=== PATIENT | male | born 1970 | race Caucasian/White ===

== ENCOUNTER 2018-05-30 19:00 | Observation (INO) | payer OTHER ==
[2018-05-30] MEDS ORDERED: ASPIRIN 81 MG PO STA (19:10)
[2018-05-30] MEDS ORDERED: SODIUM CHLORIDE 0.9% 500 ML IV STA (19:10)
--- NOTE | 2018-05-30 19:10 | ED ---
Chest Pain HPI - General Chief Complaint: Chest Pain Stated Complaint: chest pain Time Seen by Provider: 05/30/18 19:09 Source: patient, family Mode of arrival: ambulatory Limitations: no limitations - History of Present Illness Initial Comments: Lee is a 47-year-old male with past medical history of coronary artery disease with a stent placed approximately 2 years ago for a STEMI. Patient reports that he is followed with [facility]ology at the [facility], he was last seen approximately 6 months ago, he reports that he has been absolutely compliant with his home medications though he does not have a list of what they are. He states that he has been in his usual state of health. Today he was at [employer] when he began to feel a discomfort in his chest. He states that it was not a pain but just a feeling of being uncomfortable. He sat on a pain scale would only scale a 1. However he became very hot and sweaty. He excused himself from [employer] and went to the restroom where he washed his face with water. He again became hot and sweaty and washed his face again. He then began to feel somewhat better. He was uncertain of which medications to take so he took 4 nitro reports that I gave him a significant headache at which time he decided to come to the ER for evaluation. does have a history of hypertension, hyperlipidemia, coronary artery disease, obesity, he is a former cigarette smoker who does admit to smoking cigars fairly regularly recently. Patient denies any recent illness including fevers, chills, nausea, vomiting, change in bowel or bladder habits. - Related Data Home Medications Medication Instructions Recorded Confirmed Aspirin [Adult Low Dose Aspirin EC] 81 mg PO 05/30/18 Atorvastatin [Lipitor] 80 mg PO DAILY 05/30/18 05/30/18 Lisinopril [Zestril] 5 mg PO DAILY 05/30/18 05/30/18 Metoprolol Succinate [Toprol Xl] 50 mg PO BID 05/30/18 05/30/18 Ticagrelor [Brilinta] 90 mg PO BID 05/30/18 05/30/18 Allergies Allergy/AdvReac Type Severity Reaction Status Date / Time No Known Allergies Allergy Verified 05/30/18 19:08 Review of Systems ROS Statement: Those systems with pertinent positive or pertinent negative responses have been documented in the HPI. ROS Other: All systems not noted in ROS Statement are negative. Constitutional: Denies: fever Respiratory: Reports: dyspnea. Denies: cough, wheezes Cardiovascular: Reports: chest pain, palpitations. Denies: orthopnea, edema, syncope Endocrine: Denies: fatigue Gastrointestinal: Denies: abdominal pain, nausea, vomiting Genitourinary: Denies: urgency Musculoskeletal: Denies: back pain Neurological: Reports: headache (After taking nitro) Psychiatric: Denies: anxiety, depression EKG Findings - EKG Comments: EKG Findings:: EKG at 1942 - rate, 83, rhythm is sinus, normal intervals, DE is 174, QRS is 96, QTC is 434, there are no acute ST elevations or depressions. 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 Absent: respiratory distress Cardiovascular Exam: Present: regular rate, normal rhythm, normal heart sounds, other (Palpable peripheral pulses, present and equal in upper and lower extremities.) GI/Abdominal exam: Present: soft. Absent: distended, tenderness, guarding Rectal exam: Present: deferred Extremities exam: Present: normal inspection, full ROM, normal capillary refill. Absent: tenderness, pedal edema, joint swelling Back exam: Present: normal inspection Neurological exam: Present: alert, oriented X3 Psychiatric exam: Present: normal affect, normal mood Skin exam: Present: warm, dry Course Vital Signs 05/30/18 05/30/18 19:03 20:55 Temperature 98.2 F Pulse Rate 98 78 Respiratory 20 16 Rate Blood Pressure 141/85 137/77 O2 Sat by Pulse 98 98 Oximetry Chest Pain MDM - MDM The patient was seen and evaluated, history was obtained from the patient The patient with high risk cardiac history presents to the ED after an episode of chest discomfort, diaphoresis, lightheadedness which occurred while at [employer] The patient took 4 nitro prior to arrival Cardiac workup was ordered EKG with no acute ST elevations or depressions Chest x-ray unremarkable D-dimer and troponin were both negative, however considering the patient is very high risk I do feel he requires further evaluation. Patient care was discussed with Dr. Rojo who agrees the patient should be admitted to the hospital, recommends nitro and heparin drip and a consult to cardiology. Orders were placed. - Wells Criteria Clinical Symptoms of DVT: (0) No No Alternative Diagnosis: (0) No Immobilization of Surgery in Previous 4 Weeks: (0) No Previous DVT/PE: (0) No Hemoptysis: (0) No Malignancy: (0) No - ROMA Score Age > 65: (0) No 3 or more CAD Risk Factors: (1) Yes Aspirin use within the Past 7 Days: (1) Yes Disposition Clinical Impression: Chest pain, CAD (coronary artery disease), HTN (hypertension), HLD ( hyperlipidemia), Tobacco abuse, Obesity Disposition: ADMITTED IP TO THIS HOSP Referrals: None,Stated [Primary Care Provider] - 1-2 days Decision Time: 20:56
[2018-05-30 19:36] LABS: HCT 46.6 % (39.0-53.0); HGB 15.2 gm/dL (13.0-17.5); MCH 36.2 pg (25.0-35.0); MCHC 32.6 g/dL (31.0-37.0); Macrocytosis Marked; Mean Platelet Volume 6.8; Platelet Count 232 k/uL (150-450); WBC 5.2 k/uL (3.8-10.6)
[2018-05-30 19:50] LABS: Partial Thromboplastin Time 25.7 sec (22.0-30.0); Prothrombin Time 9.7 sec (9.0-12.0)
[2018-05-30 19:53] LABS: ALT 52 U/L (21-72); AST 38 U/L (17-59); Albumin 3.9 g/dL (3.5-5.0); Alkaline Phosphatase 80 U/L (38-126); Anion Gap 7 mmol/L; Blood Urea Nitrogen 17 mg/dL (9-20); Calcium 9.1 mg/dL (8.4-10.2); Carbon Dioxide 28 mmol/L (22-30); Chloride 104 mmol/L (98-107); Glucose 103 mg/dL (74-99); Magnesium 1.8 mg/dL (1.6-2.3); Potassium 4.1 mmol/L (3.5-5.1); Sodium 139 mmol/L (137-145); Total Bilirubin 0.5 mg/dL (0.2-1.3); Total Protein 6.4 g/dL (6.3-8.2)
[2018-05-30 19:58] LABS: Creatine Kinase 241 U/L (55-170)
--- NOTE | 2018-05-30 20:00 | XR ---
EXAMINATION TYPE: XR chest 2V DATE OF EXAM: 05/30/2018 COMPARISON: NONE, no prior study available in the PACS system. HISTORY: Chest pain and shortness of breath TECHNIQUE: Frontal and lateral views of the chest are obtained. FINDINGS: Multiple monitor leads are superimposing the patient chest. No pneumothorax or pleural effu sions. The pleural and diaphragmatic surfaces are well defined. No evidence of bonilla pulmonary edema. The aorta is moderately tortuous. IMPRESSION: Persistent tortuous thoracic aorta. No evidence of pneumothorax, significant pleural effusions or fra nk pulmonary edema.
[2018-05-30 20:11] LABS: Creatine Kinase MB 1.7 ng/mL (0.0-2.4); Troponin I <0.012 ng/mL (0.000-0.034)
[2018-05-30 20:20] LABS: Band Neutrophils % 3 %; Eosinophils # (M) 0.31 k/uL (0-0.7); Lymphocytes # (M) 2.55 k/uL (1.0-4.8); Neutrophils % (M) 40 %; Nucleated Red Blood Cells 0 /100 WBC (0-0); Total Cells Counted 100
[2018-05-30] MEDS ORDERED: NITROGLYCERIN SL TABS 0.4 MG TAB SUBLINGUAL PRN (20:56)
[2018-05-30] MEDS ORDERED: HEPARIN SODIUM,PORCINE 5,000 UNIT/ML 1 ML VIAL IV PRN (20:56)
[2018-05-30] MEDS ORDERED: HEPARIN SODIUM,PORCINE 5,000 UNIT/ML 1 ML VIAL IV ONE (20:56)
[2018-05-30] MEDS ORDERED: HEPARIN SOD,PORK IN 0.45% NACL 25,000 UNIT in 0.45% NACL 1 500ML.BAG IV SCH (21:00)
[2018-05-30] MEDS ORDERED: NITROGLYCERIN-D5W PMX 50 MG in DEXTROSE/WATER 1 250ML.BAG IV ONE (21:10)
[2018-05-30 22:50] VITALS: BMI 43.9
[2018-05-30] MEDS ORDERED: ATORVASTATIN 80 MG TAB PO SCH (23:15)
[2018-05-31] MEDS: NITROGLYCERIN OINT 1 INCH/GM PACKET TOPICAL SCH ×2 (00:27→06:14)
[2018-05-31] MEDS: TICAGRELOR 90 MG TAB PO SCH ×2 (00:47→08:45)
[2018-05-31] MEDS: METOPROLOL SUCCINATE (ER) 50 MG TAB.ER.24H PO SCH ×2 (00:47→08:45)
[2018-05-31 03:23] LABS: Cholesterol 153 mg/dL (<200); HDL Cholesterol 48 mg/dL (40-60); LDL Cholesterol,Calculated 64 mg/dL (0-99); Triglycerides 203 mg/dL (<150)
[2018-05-31 03:24] LABS: Mean Platelet Volume 6.7; Platelet Count 220 k/uL (150-450)
[2018-05-31 03:26] LABS: Creatine Kinase 197 U/L (55-170)
[2018-05-31 03:39] LABS: Creatine Kinase MB 1.7 ng/mL (0.0-2.4); Troponin I <0.012 ng/mL (0.000-0.034)
[2018-05-31 07:03] VITALS: RESP 18
[2018-05-31 08:02] LABS: Creatine Kinase 197 U/L (55-170)
[2018-05-31 08:14] LABS: Creatine Kinase MB 1.6 ng/mL (0.0-2.4); Troponin I <0.012 ng/mL (0.000-0.034)
[2018-05-31] MEDS ORDERED: LISINOPRIL 5 MG TAB PO SCH (09:00)
[2018-05-31] MEDS ORDERED: ASPIRIN 81 MG PO SCH (09:00)
[2018-05-31] MEDS ORDERED: ASPIRIN 325 MG TAB PO SCH (09:00)
[2018-05-31 09:21] VITALS: BP 125/78; PULSE 66; TEMP 98.2
--- NOTE | 2018-05-31 09:49 | CONS ---
CONSULTATION Mr. Garcia is a 47-year-old male who presented with symptoms of feeling dizzy and sweaty. He has a known history of coronary artery disease status post stenting in the setting of myocardial infarction in january 2016 done at the [facility] in [place]. He follows with the [facility] on a regular basis and yesterday while at [employer], he felt sweaty, did not feel well, did not have any significant discomfort, just felt uncomfortable. Washed off with some cold water and took some nitroglycerin and after he left, he was still not feeling too well. He came into the emergency room subsequently admitted. He denies any clear symptoms of chest discomfort. He denies any dizziness or palpitation. He has no peripheral edema. No PND, orthopnea, or syncope. He has no history of CHF or malignant arrhythmia. He is not very active physically. His coronary risk factors remarkable for smoking cigars at times. He has a history of hyperlipidemia. He is nondiabetic. I do not have any full detail of his procedure or his left ventricular systolic function. MEDICATION: At home include aspirin 81 mg daily, Brilinta 80 mg twice a day, Lipitor 80 mg daily, metoprolol succinate 50 mg twice a day and Zestril 5 mg daily. REVIEW OF SYSTEMS: RESPIRATORY SYSTEM: Has no recent wheezing. No cough. No history of obstructive lung disease. GI system: No recent GI bleeding. No peptic ulcer disease. system: No dysuria or hematuria. Nervous system: No history of stroke or seizure. PHYSICAL EXAMINATION: 47-year-old male, alert, oriented, in no apparent distress. Blood pressure 137/84 with a heart rate in 70s. HEAD: Normocephalic. Eyes sclerae anicteric. Neck good carotid upstroke. No bruit. No jugular venous distention. Lungs clear to auscultation. HEART: Regular rate and rhythm S1, S2. No S3. No S4. No murmur or rub. ABDOMEN: Soft, nontender. Positive bowel sounds. No organomegaly. EXTREMITIES: No edema. Intact distal pulses. LAB DATA: Lab data revealed troponin less than 0.012. BUN and creatinine 17 and 1.0. Hemoglobin of 15.2. Potassium 4.1. Cholesterol 153, LDL of 64. EKG revealed a sinus mechanism, normal axis, no acute changes. Chest x-ray shows no evidence of effusion or infiltrate. IMPRESSION: 1. Vague symptoms of right-sided discomfort and not feeling well, could be related to hypotensive episode. No clear evidence to suggest acute coronary syndrome. 2. History of coronary artery disease status post percutaneous revascularization. 3. History of smoking cigars. 4. History of hyperlipidemia. RECOMMENDATIONS: I will stop the heparin. Increase his level activity. I would recommend to proceed with myocardial perfusion imaging and echocardiogram to further assess his status and guide his treatment. Depending on the results of the testing, further recommendations will be made. Thank you for this consult. We will follow with you. MMODL / IJN: [id number] /
--- NOTE | 2018-06-02 17:14 | HP ---
HISTORY AND PHYSICAL HISTORY AND PHYSICAL/DISCHARGE SUMMARY: Combination history and physical and discharge summary CHIEF COMPLAINT: Chest pain. HISTORY OF PRESENT ILLNESS: This 47-year-old gentleman was admitted with chest pain. The patient left the hospital AGAINST MEDICAL ADVICE before being seen. Please refer to the multiple notes and ER notes for further information. Prognosis extremely guarded. DIAGNOSES: Chest pain, etiology undetermined. MMODL / IJN: [id number] /
== END 2018-05-31 11:58 | disposition left against medical advice (07) ==
LOC: EC 19:00 → 3OBS 20:59
PROVIDERS: ADMIT Hospitalist; ATTEND Hospitalist
DX: R07.89 Other chest pain (principal); R61 Generalized hyperhidrosis; R42 Dizziness and giddiness; I25.10 Atherosclerotic heart disease of native coronary artery without angina pectoris; E78.5 Hyperlipidemia, unspecified; I10 Essential (primary) hypertension; E66.9 Obesity, unspecified; Z68.41 Body mass index [BMI] 40.0-44.9, adult; D46.9 Myelodysplastic syndrome, unspecified; G44.40 Drug-induced headache, not elsewhere classified, not intractable; T46.3X5A Adverse effect of coronary vasodilators, initial encounter; F17.290 Nicotine dependence, other tobacco product, uncomplicated; Z79.02 Long term (current) use of antithrombotics/antiplatelets; Z79.82 Long term (current) use of aspirin; Z79.899 Other long term (current) drug therapy; I25.2 Old myocardial infarction; Z95.5 Presence of coronary angioplasty implant and graft
CPT/HCPCS: 99285 ×2; 96365 ×2; 96376 ×2; 96361 ×2; 96366 ×2; 36415; 93005; 83880; 80061; 80053; 82550 ×2; 82553 ×2; 83735; 84484 ×2; 85025; 85049; 85610; 85730 ×2; 71046; G0378 ×2; J1644 ×2

== ENCOUNTER 2019-04-30 13:38 | Emergency (ER) | payer OTHER ==
[2019-04-30] MEDS ORDERED: SODIUM CHLORIDE 0.9% 500 ML 500 ML IV STA (14:18)
[2019-04-30] MEDS ORDERED: LORazepam 2 MG/ML INJ IV STA (14:22)
--- NOTE | 2019-04-30 14:28 | ED ---
General Adult HPI - General Chief complaint: Chest Pain Stated complaint: chest pain Time Seen by Provider: 04/30/19 13:40 Source: patient, RN notes reviewed Mode of arrival: ambulatory Limitations: no limitations - History of Present Illness Initial comments: This a 48-year-old male who presents with a past medical history significant for coronary artery stent. Patient denies smoking. Patient states he does have high blood pressure medications since his heart attack. Patient states since heart attack he's been very stressed. Patient states that he has been under quite a bit of stress this last 2 weeks. Patient states today at a restaurant while he was eating an appetizer he started feeling warm all over and that really worried him so he decided to get up and come to the hospital. Patient states by the time he left the restaurant the warmth has gone away. Patient states he never had chest pain denies any shortness of breath or difficulty breathing. Patient denies any palpitations. Patient denies lightheadedness dizziness or near syncopal episode. Patient denies any abdominal pain patient denies nausea vomiting diarrhea per patient denies any leg swelling or calf tenderness. Patient states he thinks he might of been having a little bit of a panic attack. - Related Data Home Medications Medication Instructions Recorded Confirmed Aspirin [Adult Low Dose Aspirin EC] 81 mg PO DAILY 05/30/18 04/30/19 Atorvastatin [Lipitor] 80 mg PO DAILY 05/30/18 04/30/19 Lisinopril [Zestril] 5 mg PO DAILY 05/30/18 04/30/19 Metoprolol Succinate [Toprol Xl] 50 mg PO DAILY 05/30/18 04/30/19 Clopidogrel [Plavix] 75 mg PO DAILY 04/30/19 04/30/19 Montelukast [Singulair] 10 mg PO DAILY 04/30/19 04/30/19 Allergies Allergy/AdvReac Type Severity Reaction Status Date / Time No Known Allergies Allergy Verified 04/30/19 14:29 Review of Systems ROS Statement: Those systems with pertinent positive or pertinent negative responses have been documented in the HPI. ROS Other: All systems not noted in ROS Statement are negative. 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 Patient is nontoxic and well- hydrated and is in no acute distress. ENT: Neck is soft and supple. No significant lymphadenopathy is noted. Oropharynx is clear. Moist mucous membranes. Neck has full range of motion without eliciting any pain. EYES: The sclera were anicteric and conjunctiva were pink and moist. Extraocular movements were intact and pupils were equal round and reactive to light. Eyelids were unremarkable. PULMONARY: Unlabored respirations. Good breath sounds bilaterally. No audible rales rhonchi or wheezing was noted. CARDIOVASCULAR: There is a regular rate and rhythm without any murmurs gallops or rubs. ABDOMEN: Soft and nontender with normal bowel sounds. No palpable organomegaly was noted. There is no palpable pulsatile mass. SKIN: Skin is clear with no lesions or rashes and otherwise unremarkable. NEUROLOGIC: Patient is alert and oriented x3. Cranial nerves II through XII are grossly intact. Motor and sensory are also intact. Normal speech, volume and content. Symmetrical smile. MUSCULOSKELETAL: Normal extremities with adequate strength and full range of motion. No lower extremity swelling or edema. No calf tenderness. LYMPHATICS: No significant lymphadenopathy is noted PSYCHIATRIC: Mild anxiety Limitations: no limitations Course Vital Signs 04/30/19 04/30/19 04/30/19 13:40 14:43 15:28 Temperature 98 F 98.3 F Pulse Rate 111 H 87 Respiratory 22 16 18 Rate Blood Pressure 163/95 155/86 O2 Sat by Pulse 97 97 Oximetry Medical Decision Making - Medical Decision Making EKG shows sinus tachycardia at 102 beats per minute CA interval is 176 QRS is 94 QT interval 348 QTC is 453 per patient's EKG shows no ST segment elevation or depression or T wave abnormalities are noted. Patient states any symptomatic since he was in the emergency department. Patient states he thinks it was just his anxiety. Patient denies any symptoms currently. Patient requested go home. - Lab Data Result diagrams: 04/30/19 14:40 04/30/19 14:40 Lab Results 04/30/19 04/30/19 04/30/19 Range/Units 14:40 14:40 14:40 WBC 4.7 (3.8-10.6) k/uL RBC 4.52 (4.30-5.90) m/uL Hgb 15.9 (13.0-17.5) gm/dL Hct 48.4 (39.0-53.0) % MCV 107.1 H (80.0-100.0) fL MCH 35.1 H (25.0-35.0) pg MCHC 32.7 (31.0-37.0) g/dL RDW 14.4 (11.5-15.5) % Plt Count 269 (150-450) k/uL Neutrophils % 63 % Lymphocytes % 19 % Monocytes % 11 % Eosinophils % 3 % Basophils % 1 % Neutrophils # 3.0 (1.3-7.7) k/uL Lymphocytes # 0.9 L (1.0-4.8) k/uL Monocytes # 0.5 (0-1.0) k/uL Eosinophils # 0.2 (0-0.7) k/uL Basophils # 0.0 (0-0.2) k/uL Macrocytosis Moderate PT 9.6 (9.0-12.0) sec INR 0.9 (<1.2) APTT 27.6 (22.0-30.0) sec Sodium 139 (137-145) mmol/L Potassium 5.3 H (3.5-5.1) mmol/L Chloride 107 (98-107) mmol/L Carbon Dioxide 25 (22-30) mmol/L Anion Gap 7 mmol/L BUN 15 (9-20) mg/dL Creatinine 0.84 (0.66-1.25) mg/dL Est GFR (CKD-EPI)AfAm >90 (>60 ml/min/1.73 sqM) Est GFR (CKD-EPI)NonAf >90 (>60 ml/min/1.73 sqM) Glucose 110 H (74-99) mg/dL Calcium 9.4 (8.4-10.2) mg/dL Magnesium 2.0 (1.6-2.3) mg/dL Total Bilirubin 1.1 (0.2-1.3) mg/dL AST 53 (17-59) U/L ALT 32 (21-72) U/L Alkaline Phosphatase 83 (38-126) U/L Troponin I (0.000-0.034) ng/mL Total Protein 7.3 (6.3-8.2) g/dL Albumin 4.3 (3.5-5.0) g/dL 04/30/19 Range/Units 14:40 WBC (3.8-10.6) k/uL RBC (4.30-5.90) m/uL Hgb (13.0-17.5) gm/dL Hct (39.0-53.0) % MCV (80.0-100.0) fL MCH (25.0-35.0) pg MCHC (31.0-37.0) g/dL RDW (11.5-15.5) % Plt Count (150-450) k/uL Neutrophils % % Lymphocytes % % Monocytes % % Eosinophils % % Basophils % % Neutrophils # (1.3-7.7) k/uL Lymphocytes # (1.0-4.8) k/uL Monocytes # (0-1.0) k/uL Eosinophils # (0-0.7) k/uL Basophils # (0-0.2) k/uL Macrocytosis PT (9.0-12.0) sec INR (<1.2) APTT (22.0-30.0) sec Sodium (137-145) mmol/L Potassium (3.5-5.1) mmol/L Chloride (98-107) mmol/L Carbon Dioxide (22-30) mmol/L Anion Gap mmol/L BUN (9-20) mg/dL Creatinine (0.66-1.25) mg/dL Est GFR (CKD-EPI)AfAm (>60 ml/min/1.73 sqM) Est GFR (CKD-EPI)NonAf (>60 ml/min/1.73 sqM) Glucose (74-99) mg/dL Calcium (8.4-10.2) mg/dL Magnesium (1.6-2.3) mg/dL Total Bilirubin (0.2-1.3) mg/dL AST (17-59) U/L ALT (21-72) U/L Alkaline Phosphatase (38-126) U/L Troponin I <0.012 (0.000-0.034) ng/mL Total Protein (6.3-8.2) g/dL Albumin (3.5-5.0) g/dL Disposition Clinical Impression: Anxiety Disposition: HOME SELF-CARE Condition: Good Instructions (If sedation given, give patient instructions): Anxiety (ED) Is patient prescribed a controlled substance at d/c from ED?: No Referrals: Nonstaff,Physician [Primary Care Provider] - 1-2 days Time of Disposition: 16:23
[2019-04-30 14:55] LABS: Basophils % (A) 1 %; Eosinophils # (A) 0.2 k/uL (0-0.7); Eosinophils % (A) 3 %; HCT 48.4 % (39.0-53.0); HGB 15.9 gm/dL (13.0-17.5); Lymphocytes # (A) 0.9 k/uL (1.0-4.8); Lymphocytes % (A) 19 %; MCH 35.1 pg (25.0-35.0); MCHC 32.7 g/dL (31.0-37.0); MCV 107.1 fL (80.0-100.0); Macrocytosis Moderate; Monocytes # (A) 0.5 k/uL (0-1.0); Monocytes % (A) 11 %; Neutrophils % (A) 63 %; Platelet Count 269 k/uL (150-450); RBC 4.52 m/uL (4.30-5.90); RDW 14.4 % (11.5-15.5); WBC 4.7 k/uL (3.8-10.6)
--- NOTE | 2019-04-30 15:00 | XR ---
EXAMINATION TYPE: XR chest 2V DATE OF EXAM: 04/30/2019 COMPARISON: 05/30/2018 HISTORY: Chest pain TECHNIQUE: Frontal and lateral views of the chest are obtained. FINDINGS: There is no focal air space opacity, pleural effusion, or pneumothorax seen. The cardiac silhouette size is within normal limits. The osseous structures are intact. Minimal multilevel dege nerative changes of the thoracic spine is noted. IMPRESSION: No acute cardiopulmonary process.
[2019-04-30 15:11] LABS: ALT 32 U/L (21-72); AST 53 U/L (17-59); African American GFR (CKD) >90 (>60 ml/min/1.73 sqM); Albumin 4.3 g/dL (3.5-5.0); Alkaline Phosphatase 83 U/L (38-126); Anion Gap 7 mmol/L; Blood Urea Nitrogen 15 mg/dL (9-20); Calcium 9.4 mg/dL (8.4-10.2); Carbon Dioxide 25 mmol/L (22-30); Chloride 107 mmol/L (98-107); Glucose 110 mg/dL (74-99); Sodium 139 mmol/L (137-145); Total Bilirubin 1.1 mg/dL (0.2-1.3); Total Protein 7.3 g/dL (6.3-8.2)
[2019-04-30 15:15] LABS: Potassium 5.3 mmol/L (3.5-5.1)
[2019-04-30 15:25] LABS: INR 0.9 (<1.2); Partial Thromboplastin Time 27.6 sec (22.0-30.0); Prothrombin Time 9.6 sec (9.0-12.0)
[2019-04-30 15:29] VITALS: BP 155/86; PULSE 87; RESP 18; TEMP 98.3
== END 2019-04-30 16:30 | disposition home or self-care (01) ==
LOC: EC 13:38
DX: F41.9 Anxiety disorder, unspecified (principal); R00.0 Tachycardia, unspecified; I25.10 Atherosclerotic heart disease of native coronary artery without angina pectoris; E78.5 Hyperlipidemia, unspecified; I10 Essential (primary) hypertension; F17.200 Nicotine dependence, unspecified, uncomplicated; I25.2 Old myocardial infarction; Z79.82 Long term (current) use of aspirin; Z79.02 Long term (current) use of antithrombotics/antiplatelets; Z79.899 Other long term (current) drug therapy; Z95.5 Presence of coronary angioplasty implant and graft
CPT/HCPCS: 36415; 93005; 80053; 83735; 84484; 85025; 85610; 85730; 71046; 99285; 96374; 96361; J2060

== ENCOUNTER 2019-08-05 12:55 | Inpatient (IN) | payer OTHER ==
[2019-08-05] MEDS ORDERED: SODIUM CHLORIDE 0.9% 1,000 ML IV STA ×2 (13:34→13:42)
[2019-08-05] MEDS ORDERED: IPRATROPIUM-ALBUTEROL 3 ML NEB INHALATION STA ×3 (13:34→16:05)
[2019-08-05] MEDS ORDERED: methylPREDNISolone SOD SUCCI 125 MG/2 ML VIAL IV STA (13:34)
[2019-08-05] MEDS ORDERED: SODIUM CHLORIDE 0.9% 500 ML 500 ML IV STA (13:42)
--- NOTE | 2019-08-05 13:42 | ED ---
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 MD Complaint: shortness of breath, cough - Related Data Home Medications Medication Instructions Recorded Confirmed Aspirin [Adult Low Dose Aspirin EC] 81 mg PO DAILY 05/30/18 08/05/19 Atorvastatin [Lipitor] 80 mg PO HS 05/30/18 08/05/19 Lisinopril [Zestril] 5 mg PO DAILY 05/30/18 08/05/19 Metoprolol Succinate [Toprol Xl] 50 mg PO DAILY 05/30/18 08/05/19 Montelukast [Singulair] 10 mg PO DAILY 04/30/19 08/05/19 Allergies Allergy/AdvReac Type Severity Reaction Status Date / Time No Known Allergies Allergy Verified 08/05/19 13:30 Review of Systems ROS Statement: Those systems with pertinent positive or pertinent negative responses have been documented in the HPI. ROS Other: All systems not noted in ROS Statement are negative. Past Medical History Past Medical History: Coronary Artery Disease (CAD), Hyperlipidemia, Hypertension Additional Past Medical History / Comment(s): MDS History of Any Multi-Drug Resistant Organisms: None Reported Past Surgical History: Back Surgery, Heart Catheterization With Stent Additional Past Surgical History / Comment(s): Pins rt ankle Past Anesthesia/Blood Transfusion Reactions: No Reported Reaction Date of Last Stent Placement:: 2013 Past Psychological History: No Psychological Hx Reported Smoking Status: Light tobacco smoker Past Alcohol Use History: Occasional Past Drug Use History: None Reported General Exam - General Exam Comments Initial Comments: This a well-developed well-nourished awake alert oriented times 3 male Limitations: no limitations General appearance: alert, anxious, in distress Head exam: Present: atraumatic, normocephalic, normal inspection Eye exam: Present: normal appearance, PERRL, EOMI. Absent: scleral icterus, conjunctival injection, periorbital swelling ENT exam: Present: other (Boggy nasal mucosa) Neck exam: Present: normal inspection, full ROM, other (No stridor JVD or bruits). Absent: tenderness, meningismus, lymphadenopathy Respiratory exam: Present: wheezes, decreased breath sounds. Absent: respiratory distress, rales, rhonchi, stridor Cardiovascular Exam: Present: normal rhythm, tachycardia, normal heart sounds. Absent: systolic murmur, diastolic murmur, rubs, gallop, clicks GI/Abdominal exam: Present: soft, normal bowel sounds. Absent: distended, tenderness, guarding, rebound, rigid Extremities exam: Present: normal inspection, full ROM, normal capillary refill. Absent: tenderness, pedal edema, joint swelling, calf tenderness Back exam: Present: normal inspection Neurological exam: Present: alert, oriented X3, CN II-XII intact Psychiatric exam: Present: normal affect, normal mood Skin exam: Present: warm, dry, intact, normal color. Absent: rash Course Vital Signs 08/05/19 08/05/19 08/05/19 13:00 14:05 14:32 Temperature 102.7 F H Pulse Rate 149 H 151 H Respiratory 26 H 24 25 H Rate Blood Pressure 148/82 146/98 O2 Sat by Pulse 93 L 96 Oximetry 08/05/19 08/05/19 08/05/19 14:40 14:44 14:51 Temperature Pulse Rate 149 H 138 H 148 H Respiratory 35 H Rate Blood Pressure 146/98 O2 Sat by Pulse 92 L Oximetry 08/05/19 08/05/19 08/05/19 15:00 15:18 15:24 Temperature Pulse Rate 144 H 148 H 146 H Respiratory 44 H Rate Blood Pressure 146/98 O2 Sat by Pulse 92 L Oximetry - Reevaluation(s) Reevaluation #1: 08/05/19 16:03 Reevaluation patient reveals minimal improvement he still is dyspneic so demo nstrates diminished breath sounds bilaterally with right upper lobe crepitus. He also still demonstrated tachycardia. He does take blood pressure medication which he states he has not taken today. Patient will be admitted for inpatient treatment of pneumonia and COPD exacerbation Medical Decision Making - Medical Decision Making I did discuss the findings with the patient he continues to desaturate and straight exertional dyspnea tachycardia. He responded well with the medication given thus far. He will be admitted I did discuss the case with Elke who is covering Dr. Henry. - Lab Data Result diagrams: 08/05/19 14:16 08/05/19 14:16 Lab Results 08/05/19 08/05/19 08/05/19 Range/Units 13:51 14:00 14:16 WBC 14.2 H (3.8-10.6) k/uL RBC 4.31 (4.30-5.90) m/uL Hgb 15.7 (13.0-17.5) gm/dL Hct 45.5 (39.0-53.0) % MCV 105.6 H (80.0-100.0) fL MCH 36.3 H (25.0-35.0) pg MCHC 34.4 (31.0-37.0) g/dL RDW 14.6 (11.5-15.5) % Plt Count 309 (150-450) k/uL Neutrophils % 87 % Lymphocytes % 3 % Monocytes % 6 % Eosinophils % 1 % Basophils % 1 % Neutrophils # 12.3 H (1.3-7.7) k/uL Lymphocytes # 0.4 L (1.0-4.8) k/uL Monocytes # 0.8 (0-1.0) k/uL Eosinophils # 0.1 (0-0.7) k/uL Basophils # 0.1 (0-0.2) k/uL Macrocytosis Moderate PT (9.0-12.0) sec INR (<1.2) APTT (22.0-30.0) sec Sodium (137-145) mmol/L Potassium (3.5-5.1) mmol/L Chloride (98-107) mmol/L Carbon Dioxide (22-30) mmol/L Anion Gap mmol/L BUN (9-20) mg/dL Creatinine (0.66-1.25) mg/dL Est GFR (CKD-EPI)AfAm (>60 ml/min/1.73 sqM) Est GFR (CKD-EPI)NonAf (>60 ml/min/1.73 sqM) Glucose (74-99) mg/dL Plasma Lactic Acid Gurvinder (0.7-2.0) mmol/L Calcium (8.4-10.2) mg/dL Magnesium (1.6-2.3) mg/dL Total Bilirubin (0.2-1.3) mg/dL AST (17-59) U/L ALT (21-72) U/L Alkaline Phosphatase (38-126) U/L Creatine Kinase (55-170) U/L Troponin I (0.000-0.034) ng/mL NT-Pro-B Natriuret Pep pg/mL Total Protein (6.3-8.2) g/dL Albumin (3.5-5.0) g/dL Urine Color Dark Brown Urine Appearance Cloudy (Clear) Urine pH 6.0 (5.0-8.0) Ur Specific [place] 1.047 H (1.001-1.035) Urine Protein 3+ H (Negative) Urine Glucose (UA) Trace H (Negative) Urine Ketones Trace H (Negative) Urine Blood Moderate H (Negative) Urine Nitrite Negative (Negative) Urine Bilirubin 1+ H (Negative) Urine Urobilinogen 4.0 (<2.0) mg/dL Ur Leukocyte Esterase Negative (Negative) Urine RBC 42 H (0-5) /hpf Urine WBC 9 H (0-5) /hpf Urine Bacteria Occasional H (None) /hpf Urine Mucus Many H (None) /hpf Influenza Type A RNA Not Detected (Not Detectd) Influenza Type B (PCR) Not Detected (Not Detectd) 08/05/19 08/05/19 08/05/19 Range/Units 14:16 14:16 14:16 WBC (3.8-10.6) k/uL RBC (4.30-5.90) m/uL Hgb (13.0-17.5) gm/dL Hct (39.0-53.0) % MCV (80.0-100.0) fL MCH (25.0-35.0) pg MCHC (31.0-37.0) g/dL RDW (11.5-15.5) % Plt Count (150-450) k/uL Neutrophils % % Lymphocytes % % Monocytes % % Eosinophils % % Basophils % % Neutrophils # (1.3-7.7) k/uL Lymphocytes # (1.0-4.8) k/uL Monocytes # (0-1.0) k/uL Eosinophils # (0-0.7) k/uL Basophils # (0-0.2) k/uL Macrocytosis PT 9.8 (9.0-12.0) sec INR 0.9 (<1.2) APTT 30.7 H (22.0-30.0) sec Sodium 140 (137-145) mmol/L Potassium 4.5 (3.5-5.1) mmol/L Chloride 106 (98-107) mmol/L Carbon Dioxide 22 (22-30) mmol/L Anion Gap 12 mmol/L BUN 16 (9-20) mg/dL Creatinine 1.21 (0.66-1.25) mg/dL Est GFR (CKD-EPI)AfAm 80 (>60 ml/min/1.73 sqM) Est GFR (CKD-EPI)NonAf 69 (>60 ml/min/1.73 sqM) Glucose 125 H (74-99) mg/dL Plasma Lactic Acid Gurvinder (0.7-2.0) mmol/L Calcium 9.1 (8.4-10.2) mg/dL Magnesium 1.9 (1.6-2.3) mg/dL Total Bilirubin 1.0 (0.2-1.3) mg/dL AST 110 H (17-59) U/L ALT 139 H (21-72) U/L Alkaline Phosphatase 188 H (38-126) U/L Creatine Kinase 164 (55-170) U/L Troponin I (0.000-0.034) ng/mL NT-Pro-B Natriuret Pep 73 pg/mL Total Protein 7.3 (6.3-8.2) g/dL Albumin 3.8 (3.5-5.0) g/dL Urine Color Urine Appearance (Clear) Urine pH (5.0-8.0) Ur Specific [place] (1.001-1.035) Urine Protein (Negative) Urine Glucose (UA) (Negative) Urine Ketones (Negative) Urine Blood (Negative) Urine Nitrite (Negative) Urine Bilirubin (Negative) Urine Urobilinogen (<2.0) mg/dL Ur Leukocyte Esterase (Negative) Urine RBC (0-5) /hpf Urine WBC (0-5) /hpf Urine Bacteria (None) /hpf Urine Mucus (None) /hpf Influenza Type A RNA (Not Detectd) Influenza Type B (PCR) (Not Detectd) 08/05/19 08/05/19 Range/Units 14:16 14:16 WBC (3.8-10.6) k/uL RBC (4.30-5.90) m/uL Hgb (13.0-17.5) gm/dL Hct (39.0-53.0) % MCV (80.0-100.0) fL MCH (25.0-35.0) pg MCHC (31.0-37.0) g/dL RDW (11.5-15.5) % Plt Count (150-450) k/uL Neutrophils % % Lymphocytes % % Monocytes % % Eosinophils % % Basophils % % Neutrophils # (1.3-7.7) k/uL Lymphocytes # (1.0-4.8) k/uL Monocytes # (0-1.0) k/uL Eosinophils # (0-0.7) k/uL Basophils # (0-0.2) k/uL Macrocytosis PT (9.0-12.0) sec INR (<1.2) APTT (22.0-30.0) sec Sodium (137-145) mmol/L Potassium (3.5-5.1) mmol/L Chloride (98-107) mmol/L Carbon Dioxide (22-30) mmol/L Anion Gap mmol/L BUN (9-20) mg/dL Creatinine (0.66-1.25) mg/dL Est GFR (CKD-EPI)AfAm (>60 ml/min/1.73 sqM) Est GFR (CKD-EPI)NonAf (>60 ml/min/1.73 sqM) Glucose (74-99) mg/dL Plasma Lactic Acid Gurvinder 1.8 (0.7-2.0) mmol/L Calcium (8.4-10.2) mg/dL Magnesium (1.6-2.3) mg/dL Total Bilirubin (0.2-1.3) mg/dL AST (17-59) U/L ALT (21-72) U/L Alkaline Phosphatase (38-126) U/L Creatine Kinase (55-170) U/L Troponin I <0.012 (0.000-0.034) ng/mL NT-Pro-B Natriuret Pep pg/mL Total Protein (6.3-8.2) g/dL Albumin (3.5-5.0) g/dL Urine Color Urine Appearance (Clear) Urine pH (5.0-8.0) Ur Specific [place] (1.001-1.035) Urine Protein (Negative) Urine Glucose (UA) (Negative) Urine Ketones (Negative) Urine Blood (Negative) Urine Nitrite (Negative) Urine Bilirubin (Negative) Urine Urobilinogen (<2.0) mg/dL Ur Leukocyte Esterase (Negative) Urine RBC (0-5) /hpf Urine WBC (0-5) /hpf Urine Bacteria (None) /hpf Urine Mucus (None) /hpf Influenza Type A RNA (Not Detectd) Influenza Type B (PCR) (Not Detectd) - Radiology Data Radiology results: report reviewed (Multifocal pneumonia especially right upper lobe), image reviewed Critical Care Time Critical Care Time: Yes Critical Care Time: 31 minutes of critical care time which includes initial presentation with history physical labs x-rays multiple reevaluation patient responsive therapy discuss with the patient regarding the findings discussed with the admitting service admission orders and documentation of the above Disposition Clinical Impression: Right upper lobe pneumonia, Acute exacerbation of chronic obstructive pulmonary disease, Acute respiratory distress syndrome in adult, Tachycardia, Febrile illness, acute Disposition: ADMITTED IP TO THIS [facility] Condition: Fair Referrals: Nonstaff,Physician [Primary Care Provider] - 1-2 days
--- NOTE | 2019-08-05 13:57 | XR ---
EXAMINATION TYPE: XR chest 2V DATE OF EXAM: 08/05/2019 COMPARISON: 04/30/2019 HISTORY: Cough and body aches TECHNIQUE: Frontal and lateral views of the chest are obtained. FINDINGS: New opacities are seen in the right upper lobe including the lateral aspect and paratrache al region. Remainder the lungs are clear. Flattening of the diaphragms on the lateral view suggests u nderlying COPD. Cardiomediastinal silhouette is within normal limits but shifted to the right seconda ry to patient positioning. IMPRESSION: Findings most compatible with multifocal pneumonia. Follow-up to resolution is recommend ed.
[2019-08-05 14:03] LABS: Appearance,Urine Cloudy (Clear); Bacteria,Urine Occasional /hpf; Bilirubin,Urine 1+ (Negative); Blood,Urine Moderate (Negative); Color,Urine Dark Brown; Glucose,Urine (UA) Trace (Negative); Ketones,Urine Trace (Negative); Leukocyte Esterase,Urine Negative (Negative); Mucus,Urine Many /hpf; Nitrite,Urine Negative (Negative); Protein,Urine 3+ (Negative); RBC,Urine 42 /hpf (0-5); WBC,Urine 9 /hpf (0-5)
[2019-08-05 14:07] LABS: Specific Gravity,Urine 1.047 (1.001-1.035)
[2019-08-05 14:38] LABS: Basophils # (A) 0.1 k/uL (0-0.2); Basophils % (A) 1 %; Eosinophils # (A) 0.1 k/uL (0-0.7); Eosinophils % (A) 1 %; HCT 45.5 % (39.0-53.0); HGB 15.7 gm/dL (13.0-17.5); Lymphocytes # (A) 0.4 k/uL (1.0-4.8); Lymphocytes % (A) 3 %; MCH 36.3 pg (25.0-35.0); MCHC 34.4 g/dL (31.0-37.0); MCV 105.6 fL (80.0-100.0); Macrocytosis Moderate; Mean Platelet Volume 6.1; Monocytes # (A) 0.8 k/uL (0-1.0); Monocytes % (A) 6 %; Neutrophils # (A) 12.3 k/uL (1.3-7.7); Neutrophils % (A) 87 %; Platelet Count 309 k/uL (150-450); RBC 4.31 m/uL (4.30-5.90); RDW 14.6 % (11.5-15.5); WBC 14.2 k/uL (3.8-10.6)
[2019-08-05 14:43] LABS: Albumin 3.8 g/dL (3.5-5.0); Calcium 9.1 mg/dL (8.4-10.2); Magnesium 1.9 mg/dL (1.6-2.3); Potassium 4.5 mmol/L (3.5-5.1); Total Protein 7.3 g/dL (6.3-8.2)
[2019-08-05 15:04] LABS: INR 0.9 (<1.2); Partial Thromboplastin Time 30.7 sec (22.0-30.0); Prothrombin Time 9.8 sec (9.0-12.0)
[2019-08-05] MEDS ORDERED: cefTRIAXone IN SWFI 1,000 MG/10 ML SYRINGE IVP STA (15:07)
[2019-08-05] MEDS ORDERED: PNEUMONIA PROTOCOL UTILIZED 1 EACH MISC PO PRN (16:11)
[2019-08-05] MEDS ORDERED: AZITHROMYCIN 500 MG in SODIUM CHLORIDE 0.9% 250 ML IVPB STA (16:11)
[2019-08-05] MEDS ORDERED: METOPROLOL SUCCINATE (ER) 50 MG TAB.ER.24H PO STA (16:15)
[2019-08-05] MEDS ORDERED: LISINOPRIL 5 MG TAB PO STA (16:16)
[2019-08-05] MEDS ORDERED: ACETAMINOPHEN TAB 500 MG TAB PO STA ×2 (17:05→17:20)
[2019-08-05 17:56] VITALS: BMI 40.4
[2019-08-05] MEDS: SODIUM CHLORIDE 0.9% 1,000 ML IV SCH (18:45)
[2019-08-05] MEDS: methylPREDNISolone SOD SUCCI 125 MG/2 ML VIAL IV SCH ×2 (18:51→23:13)
[2019-08-05] MEDS: IPRATROPIUM-ALBUTEROL 3 ML NEB INHALATION SCH ×2 (19:12→23:36)
[2019-08-05] MEDS: ATORVASTATIN 80 MG TAB PO SCH (20:19)
[2019-08-05 20:46] LABS: Glucose,Whole Blood 233 mg/dL (75-99)
[2019-08-05] MEDS: INSULIN ASPART (NovoLOG) 100 UNIT/ML VIAL SQ SCH (21:29)
[2019-08-05] MEDS: MELATONIN 5 MG TABLET PO PRN (23:12)
[2019-08-06] MEDS: SODIUM CHLORIDE 0.9% 1,000 ML IV SCH ×2 (03:11→14:40)
[2019-08-06] MEDS: IPRATROPIUM-ALBUTEROL 3 ML NEB INHALATION SCH ×5 (03:27→20:54)
[2019-08-06 05:57] LABS: Glucose,Whole Blood 169 mg/dL (75-99)
[2019-08-06] MEDS: INSULIN ASPART (NovoLOG) 100 UNIT/ML VIAL SQ SCH ×4 (06:06→21:53)
[2019-08-06] MEDS: methylPREDNISolone SOD SUCCI 125 MG/2 ML VIAL IV SCH (06:06)
[2019-08-06] MEDS: ACETAMINOPHEN TAB 325 MG TAB PO PRN ×3 (06:11→21:58)
[2019-08-06] MEDS: ASPIRIN 81 MG PO SCH (07:47)
[2019-08-06] MEDS: LISINOPRIL 5 MG TAB PO SCH (07:53)
[2019-08-06] MEDS: METOPROLOL SUCCINATE (ER) 50 MG TAB.ER.24H PO SCH (07:53)
[2019-08-06] MEDS: MONTELUKAST 10 MG TAB PO SCH (07:54)
--- NOTE | 2019-08-06 11:20 | P.HPIM ---
History of Present Illness Patient is a pleasant 49-year-old gentleman came in with complains of cough without any significant sputum production fever chills which has been going on for last 6 days. Patient is found to have significant pneumonia on the right side T multifocal significant in the right upper lobe. Repeat x-ray showed worsening of this pneumonia., Blood cultures were done sputum cultures were ordered. Patient additionally has elevated liver enzymes which is in minimal elevation twice in normal patient is on high-dose statin may be contributing to that since it's only minimal elevation of not stopping the statin, we'll repeat liver enz ymes will also order ultrasound to rule out any cholelithiasis. Can be related to infection itself. Patient does have history of coronary disease stents in the past quit smoking 10 years ago patient is not in COPD exacerbation IV steroids will be discontinued. Patient blood sugars started going up because of her systemic steroids will obtain hemoglobin A1c. Patient is not a known diabetic Review of Systems REVIEW OF SYSTEMS: CONSTITUTIONAL: No fever, no malaise, no fatigue. HEENT: No recent visual problems or hearing problems. Denied any sore throat. CARDIOVASCULAR: No chest pain, orthopnea, PND, no palpitations, no syncope. PULMONARY: No shortness of breath, GASTROINTESTINAL: No diarrhea, no nausea, no vomiting, no abdominal pain. NEUROLOGICAL: No headaches, no weakness, no numbness. HEMATOLOGICAL: Denies any bleeding or petechiae. GENITOURINARY: Denies any burning micturition, frequency, or urgency. MUSCULOSKELETAL/RHEUMATOLOGICAL: Denies any joint pain, swelling, or any muscle pain. ENDOCRINE: Denies any polyuria or polydipsia. The rest of the 14-point review of systems is negative. Past Medical History Past Medical History: Coronary Artery Disease (CAD), Hyperlipidemia, Hypertension Additional Past Medical History / Comment(s): MDS History of Any Multi-Drug Resistant Organisms: None Reported Past Surgical History: Back Surgery, Heart Catheterization With Stent Additional Past Surgical History / Comment(s): Pins rt ankle Past Anesthesia/Blood Transfusion Reactions: No Reported Reaction Date of Last Stent Placement:: 2013 Past Psychological History: No Psychological Hx Reported Smoking Status: Former smoker Past Alcohol Use History: Occasional Past Drug Use History: None Reported Medications and Allergies Home Medications Medication Instructions Recorded Confirmed Type Aspirin [Adult Low Dose Aspirin EC] 81 mg PO DAILY 05/30/18 08/05/19 History Atorvastatin [Lipitor] 80 mg PO HS 05/30/18 08/05/19 History Lisinopril [Zestril] 5 mg PO DAILY 05/30/18 08/05/19 History Metoprolol Succinate [Toprol Xl] 50 mg PO DAILY 05/30/18 08/05/19 History Montelukast [Singulair] 10 mg PO DAILY 04/30/19 08/05/19 History Allergies Allergy/AdvReac Type Severity Reaction Status Date / Time No Known Allergies Allergy Verified 08/05/19 13:30 Physical Exam Vitals: Vital Signs Temp Pulse Pulse Resp BP BP Pulse Ox 08/06/19 08:14 17 08/06/19 07:51 96 08/06/19 07:43 90 08/06/19 07:35 98.2 F 98 17 143/95 91 L 08/06/19 03:39 95 08/06/19 03:28 95 08/06/19 03:25 102 H 20 08/06/19 03:23 98.4 F 102 H 20 150/84 91 L 08/05/19 23:46 100 08/05/19 23:45 98.3 F 100 18 138/85 92 L 08/05/19 23:36 101 H 08/05/19 19:45 99.9 F H 109 H 18 133/90 92 L 08/05/19 19:23 104 H 08/05/19 19:14 102 H 08/05/19 17:49 102.7 F H 140 H 20 153/87 93 L 08/05/19 17:00 140 H 20 153/87 93 L 08/05/19 16:40 135 H 18 153/87 91 L 08/05/19 16:20 137 H 17 91 L 08/05/19 16:00 149 H 18 147/124 94 L 08/05/19 15:40 144 H 22 147/124 91 L 08/05/19 15:24 146 H 08/05/19 15:20 146 H 20 137/97 95 08/05/19 15:18 148 H 08/05/19 15:00 144 H 44 H 146/98 92 L 08/05/19 14:51 148 H 08/05/19 14:44 138 H 08/05/19 14:40 149 H 35 H 146/98 92 L 08/05/19 14:32 151 H 25 H 146/98 96 08/05/19 14:05 24 08/05/19 13:00 102.7 F H 149 H 26 H 148/82 93 L Intake and Output 08/05/19 08/06/19 08/06/19 22:59 06:59 14:59 Intake Total 1000 540 480 Output Total 600 Balance 1000 540 -120 Intake: Amount of Fluid Infused ( 1000 ml) Oral 540 480 Output: Urine 600 Other: Voiding Method Toilet Toilet # Voids 1 1 Weight 117.1 kg PHYSICAL EXAMINATION: GENERAL: The patient is alert and oriented x3, not in any acute distress. Well developed, well nourished. HEENT: Pupils are round and equally reacting to light. EOMI. No scleral icterus. No conjunctival pallor. Normocephalic, atraumatic. No pharyngeal erythema. No thyromegaly. CARDIOVASCULAR: S1 and S2 present. No murmurs, rubs, or gallops. PULMONARY: Chest is clear to auscultation, no wheezing or crackles. There may be bronchophony right side anteriorly ABDOMEN: Soft, nontender, nondistended, normoactive bowel sounds. No palpable organomegaly. MUSCULOSKELETAL: No joint swelling or deformity. EXTREMITIES: No cyanosis, clubbing, or pedal edema. NEUROLOGICAL: Gross neurological examination did not reveal any focal deficits. SKIN: No rashes. Results CBC & Chem 7: 08/05/19 14:16 08/05/19 14:16 Labs: Abnormal Lab Results - Last 24 Hours (Table) 08/05/19 08/05/19 08/05/19 Range/Units 13:51 14:16 14:16 WBC 14.2 H (3.8-10.6) k/uL MCV 105.6 H (80.0-100.0) fL MCH 36.3 H (25.0-35.0) pg Neutrophils # 12.3 H (1.3-7.7) k/uL Lymphocytes # 0.4 L (1.0-4.8) k/uL APTT (22.0-30.0) sec Glucose 125 H (74-99) mg/dL POC Glucose (mg/dL) (75-99) mg/dL AST 110 H (17-59) U/L ALT 139 H (21-72) U/L Alkaline Phosphatase 188 H (38-126) U/L Ur Specific [place] 1.047 H (1.001-1.035) Urine Protein 3+ H (Negative) Urine Glucose (UA) Trace H (Negative) Urine Ketones Trace H (Negative) Urine Blood Moderate H (Negative) Urine Bilirubin 1+ H (Negative) Urine RBC 42 H (0-5) /hpf Urine WBC 9 H (0-5) /hpf Urine Bacteria Occasional H (None) /hpf Urine Mucus Many H (None) /hpf 08/05/19 08/05/19 08/06/19 Range/Units 14:16 20:44 05:55 WBC (3.8-10.6) k/uL MCV (80.0-100.0) fL MCH (25.0-35.0) pg Neutrophils # (1.3-7.7) k/uL Lymphocytes # (1.0-4.8) k/uL APTT 30.7 H (22.0-30.0) sec Glucose (74-99) mg/dL POC Glucose (mg/dL) 233 H 169 H (75-99) mg/dL AST (17-59) U/L ALT (21-72) U/L Alkaline Phosphatase (38-126) U/L Ur Specific [place] (1.001-1.035) Urine Protein (Negative) Urine Glucose (UA) (Negative) Urine Ketones (Negative) Urine Blood (Negative) Urine Bilirubin (Negative) Urine RBC (0-5) /hpf Urine WBC (0-5) /hpf Urine Bacteria (None) /hpf Urine Mucus (None) /hpf Assessment and Plan Plan: -Sepsis secondary to right upper lobe pneumonia. Patient will be continued on IV fluids Rocephin and azithromycin. -Elevated liver enzymes: Hepatitis panel and ultrasound of the right upper quadrant that being up and probably related to statin as this is only minimal elevation not discontinue statin will just repeat liver enzymes tomorrow. -Coronary artery disease -Elevated blood sugars will obtain hemoglobin A1c secondary to systemic steroids which were discontinued patient is not in COPD exacerbation -Hypertension continue with lisinopril -Hyperlipidemia -Asymptomatic bacteriuria no evidence of a urinary tract infection -DVT prophylaxis early ambulation. GI prophylaxis Pepcid
--- NOTE | 2019-08-06 11:40 | XR ---
EXAMINATION TYPE: XR chest 2V DATE OF EXAM: 08/06/2019 COMPARISON: 08/05/2019 INDICATION: Pneumonia TECHNIQUE: Frontal and lateral views of the chest are obtained. FINDINGS: The heart size is normal. The pulmonary vasculature is normal. Right upper lobe consolidation is present. IMPRESSION: 1. Correlate for right upper lobe pneumonia.
[2019-08-06 11:53] LABS: Glucose,Whole Blood 242 mg/dL (75-99)
--- NOTE | 2019-08-06 13:51 | P.CNPUL ---
History of Present Illness Consult date: 08/06/19 Requesting physician: Toro Henry Reason for consult: dyspnea, abnormal CXR/CT Chief complaint: Shortness of breath, cough congestion History of present illness: This is a very pleasant 49-year-old gentleman with a known history of hypertension, hyperlipidemia and the coronary artery disease with previous stent placement him a history of MDS with previous chemotherapy in 2008. He also has a history of chronic tobacco dependence and occasional alcohol use. He presented to the emergency room yesterday with complaints of increasing shortness of breath, cough and congestion. He also had some body aches and pains. He did have also had some fever chills and sweats. His chest x-ray revealed new opacities in the right upper lobe including the lateral aspect in paratracheal region. Otherwise clear. T-max of 102.7. White count 14.2. Hemoglobin 15.7. Creatinine 1.21. AST 110, ALT 139. Urinalysis 3+ protein trace glucose trace ketones. Influenza screen negative. He's been initiated on bronchodilators, ceftriaxone and azithromycin. He is seen today in consultation on the selective care unit. He is awake and alert in no acute distress. He is breathing a bit easier today as compared to yesterday. Continues with a loose nonproductive cough. He's been afebrile. Hemodynamically stable. Maintaining O2 saturations in the low 90s on room air. Review of Systems REVIEW OF SYSTEMS: CONSTITUTIONAL: Denies any recent significant weight loss or weight gain. Fatigue, weakness. EYES: Denies change in vision. EARS, NOSE, MOUTH, THROAT: Denies headaches, denies sore throat. CARDIOVASCULAR: Denies chest pain, palpitations or syncopal episodes. RESPIRATORY: Positive for shortness of breath, cough, congestion no hemoptysis. GASTROINTESTINAL: Denies change in appetite, denies abdominal pain GENITOURINARY: Denies hematuria, denies infections. MUSKULOSKELETAL: Denies pain, denies swelling. INTEGUMENTARY: Denies rash, denies eczema. NEUROLOGICAL: Denies recent memory loss, no recent seizure activity. PSYCHIATRIC: Denies anxiety, denies depression. HEMATOLOGIC/LYMPHATIC: Denies anemia, denies enlarged lymph nodes. Past Medical History Past Medical History: Coronary Artery Disease (CAD), Hyperlipidemia, Hypertension Additional Past Medical History / Comment(s): MDS History of Any Multi-Drug Resistant Organisms: None Reported Past Surgical History: Back Surgery, Heart Catheterization With Stent Additional Past Surgical History / Comment(s): Pins rt ankle Past Anesthesia/Blood Transfusion Reactions: No Reported Reaction Date of Last Stent Placement:: 2013 Past Psychological History: No Psychological Hx Reported Smoking Status: Former smoker Past Alcohol Use History: Occasional Past Drug Use History: None Reported - Past Family History Father Family Medical History: Coronary Artery Disease (CAD) Medications and Allergies Home Medications Medication Instructions Recorded Confirmed Type Aspirin [Adult Low Dose Aspirin EC] 81 mg PO DAILY 05/30/18 08/05/19 History Atorvastatin [Lipitor] 80 mg PO HS 05/30/18 08/05/19 History Lisinopril [Zestril] 5 mg PO DAILY 05/30/18 08/05/19 History Metoprolol Succinate [Toprol Xl] 50 mg PO DAILY 05/30/18 08/05/19 History Montelukast [Singulair] 10 mg PO DAILY 04/30/19 08/05/19 History Allergies Allergy/AdvReac Type Severity Reaction Status Date / Time No Known Allergies Allergy Verified 08/05/19 13:30 Physical Exam Vitals: Vital Signs Temp Pulse Pulse Resp BP BP Pulse Ox 08/06/19 11:46 98.4 F 102 H 16 128/83 93 L 08/06/19 11:23 94 08/06/19 11:13 90 08/06/19 08:14 17 08/06/19 07:51 96 08/06/19 07:43 90 08/06/19 07:35 98.2 F 98 17 143/95 91 L 08/06/19 03:39 95 08/06/19 03:28 95 08/06/19 03:25 102 H 20 08/06/19 03:23 98.4 F 102 H 20 150/84 91 L 08/05/19 23:46 100 08/05/19 23:45 98.3 F 100 18 138/85 92 L 08/05/19 23:36 101 H 08/05/19 19:45 99.9 F H 109 H 18 133/90 92 L 08/05/19 19:23 104 H 08/05/19 19:14 102 H 08/05/19 17:49 102.7 F H 140 H 20 153/87 93 L 08/05/19 17:00 140 H 20 153/87 93 L 08/05/19 16:40 135 H 18 153/87 91 L 08/05/19 16:20 137 H 17 91 L 08/05/19 16:00 149 H 18 147/124 94 L 08/05/19 15:40 144 H 22 147/124 91 L 08/05/19 15:24 146 H 08/05/19 15:20 146 H 20 137/97 95 08/05/19 15:18 148 H 08/05/19 15:00 144 H 44 H 146/98 92 L 08/05/19 14:51 148 H 08/05/19 14:44 138 H 08/05/19 14:40 149 H 35 H 146/98 92 L 08/05/19 14:32 151 H 25 H 146/98 96 08/05/19 14:05 24 Intake and Output 08/05/19 08/06/19 08/06/19 22:59 06:59 14:59 Intake Total 1000 540 480 Output Total 600 Balance 1000 540 -120 Intake: Amount of Fluid Infused ( 1000 ml) Oral 540 480 Output: Urine 600 Other: Voiding Method Toilet Toilet # Voids 1 1 Weight 117.1 kg GENERAL EXAM: Alert, 49-year-old gentleman, comfortable in no apparent distress. On room air. HEAD: Normocephalic. EYES: Normal reaction of pupils, equal size. NOSE: Clear with pink turbinates. THROAT: No erythema or exudates. NECK: No masses, no JVD. CHEST: No chest wall deformity. LUNGS: Equal air entry with bilateral scattered rhonchi right greater than left CVS: S1 and S2 normal with no audible murmur, regular rhythm. ABDOMEN: No hepatosplenomegaly, normal bowel sounds, no guarding or rigidity. SPINE: No scoliosis or deformity SKIN: No rashes CENTRAL NERVOUS SYSTEM: No focal deficits, tone is normal in all 4 extremities. EXTREMITIES: There is no peripheral edema. No clubbing, no cyanosis. Peripheral pulses are intact. Results - Laboratory Findings CBC and BMP: 08/05/19 14:16 08/05/19 14:16 PT/INR, D-dimer PT 9.8 sec (9.0-12.0) 08/05/19 14:16 INR 0.9 (<1.2) 08/05/19 14:16 Abnormal lab findings: Abnormal Labs 08/05/19 08/05/19 08/05/19 13:51 14:16 14:16 WBC 14.2 H MCV 105.6 H MCH 36.3 H Neutrophils # 12.3 H Lymphocytes # 0.4 L APTT Glucose 125 H POC Glucose (mg/dL) AST 110 H ALT 139 H Alkaline Phosphatase 188 H Ur Specific Sharon 1.047 H Urine Protein 3+ H Urine Glucose (UA) Trace H Urine Ketones Trace H Urine Blood Moderate H Urine Bilirubin 1+ H Urine RBC 42 H Urine WBC 9 H Urine Bacteria Occasional H Urine Mucus Many H 08/05/19 08/05/19 08/06/19 14:16 20:44 05:55 WBC MCV MCH Neutrophils # Lymphocytes # APTT 30.7 H Glucose POC Glucose (mg/dL) 233 H 169 H AST ALT Alkaline Phosphatase Ur Specific Sharon Urine Protein Urine Glucose (UA) Urine Ketones Urine Blood Urine Bilirubin Urine RBC Urine WBC Urine Bacteria Urine Mucus 08/06/19 11:51 WBC MCV MCH Neutrophils # Lymphocytes # APTT Glucose POC Glucose (mg/dL) 242 H AST ALT Alkaline Phosphatase Ur Specific Sharon Urine Protein Urine Glucose (UA) Urine Ketones Urine Blood Urine Bilirubin Urine RBC Urine WBC Urine Bacteria Urine Mucus - Diagnostic Findings Chest x-ray: image reviewed Assessment and Plan Assessment: Impression: #1 Acute multi-focal pneumonia of the right lung. #2 History of coronary artery disease with previous stent placement. #3 History of chronic tobacco dependence. #4 Hyperlipidemia. #5 Hypertension. #6 Possible new-onset diabetes mellitus. Plan: The patient was seen and evaluated by Dr. Lyons. Chest x-rays, labs reviewed. We'll continue the current treatment plan including ceftriaxone and azithromycin. Repeat a chest x-ray in the a.m. Also will discharge in the a.m. We'll increase his activity as tolerated. We'll continue to follow and make further recommendations based on his clinical status. He is educated regarding the importance of continued complete smoking cessation. I, the cosigning physician, performed a history & physical examination of the patient. Lungs sounds with few scattered rhonchi more so on the right. Maintaining good O2 saturations in the 90s on room air. I discussed the assessment and plan of care with my nurse practitioner, Sophia Krause. I attest to the above note as dictated by her. Time with Patient: Greater than 30
--- NOTE | 2019-08-06 15:41 | US ---
EXAMINATION TYPE: US gallbladder DATE OF EXAM: 08/06/2019 COMPARISON: NONE CLINICAL HISTORY: elevated liver enzymes. Pneumonia EXAM MEASUREMENTS: Liver Length: 18.3 cm Gallbladder Wall: 0.3 cm CBD: 0.4 cm Right Kidney: 13.5 x 8.2 x 6.2 cm Pancreas: hyperechoic; mid and tail obscured by bowel gas Liver: enlarged; attenuated posterior right lobe Gallbladder: no stones or masses seen; wall measure is at upper limits of normal Evidence for sonographic Mcleod's sign: no CBD: wnl Right Kidney: No hydronephrosis or masses seen IMPRESSION: 1. Right upper quadrant ultrasound is unremarkable.
[2019-08-06] MEDS ORDERED: AZITHROMYCIN 500 MG TAB PO SCH (16:00)
[2019-08-06 16:32] LABS: Glucose,Whole Blood 195 mg/dL (75-99)
[2019-08-06 16:57] LABS: Hemoglobin A1C 5.5 % (4.0-6.0)
[2019-08-06] MEDS: FAMOTIDINE 20 MG TAB PO SCH (17:07)
[2019-08-06 17:12] LABS: Hepatitis A Antibody IgM Non-Reactive (Non-Reactive)
[2019-08-06 17:26] LABS: Hepatitis B Core IgM Non-Reactive (Non-Reactive); Hepatitis B Surface Antigen Non-Reactive (Non-Reactive); Hepatitis C IgG Antibody Non-Reactive (Non-Reactive)
[2019-08-06 20:25] LABS: Glucose,Whole Blood 184 mg/dL (75-99)
[2019-08-06] MEDS: ATORVASTATIN 80 MG TAB PO SCH (21:53)
[2019-08-06] MEDS: MELATONIN 5 MG TABLET PO PRN (21:58)
[2019-08-07] MEDS: IPRATROPIUM-ALBUTEROL 3 ML NEB INHALATION SCH ×3 (00:33→08:45)
[2019-08-07 06:32] LABS: Glucose,Whole Blood 149 mg/dL (75-99)
[2019-08-07] MEDS: INSULIN ASPART (NovoLOG) 100 UNIT/ML VIAL SQ SCH (06:33)
[2019-08-07 06:35] LABS: HCT 44.3 % (39.0-53.0); HGB 14.2 gm/dL (13.0-17.5); Hypochromasia Moderate; MCH 35.7 pg (25.0-35.0); MCHC 32.2 g/dL (31.0-37.0); Macrocytosis Marked; Mean Platelet Volume 7.4; Platelet Count 339 k/uL (150-450); RBC 3.98 m/uL (4.30-5.90); RDW 15.1 % (11.5-15.5); WBC 13.4 k/uL (3.8-10.6)
[2019-08-07 06:44] LABS: ALT 182 U/L (21-72); AST 175 U/L (17-59); African American GFR (CKD) >90 (>60 ml/min/1.73 sqM); Albumin 3.2 g/dL (3.5-5.0); Alkaline Phosphatase 171 U/L (38-126); Anion Gap 13 mmol/L; Blood Urea Nitrogen 23 mg/dL (9-20); Calcium 8.8 mg/dL (8.4-10.2); Carbon Dioxide 21 mmol/L (22-30); Chloride 109 mmol/L (98-107); Glucose 156 mg/dL (74-99); Potassium 4.5 mmol/L (3.5-5.1); Sodium 143 mmol/L (137-145); Total Bilirubin 0.4 mg/dL (0.2-1.3); Total Protein 6.3 g/dL (6.3-8.2)
[2019-08-07 06:45] LABS: MCV 111.1 fL (80.0-100.0)
--- NOTE | 2019-08-07 06:51 | XR ---
EXAMINATION TYPE: XR chest 1V portable DATE OF EXAM: 08/07/2019 HISTORY: RUL pneumonia. REFERENCE: Previous. FINDINGS: There is a marked worsening in the patient's right-sided infiltrates. There is a developing left basilar infiltrate. The heart is mildly enlarged. There are small, bilateral effusions. IMPRESSION: MARKED WORSENING IN THE APPEARANCE OF THE CHEST WORSE ON THE RIGHT THAN THE LEFT CONSISTENT WITH WORS ENING PNEUMONIA.
[2019-08-07] MEDS: MONTELUKAST 10 MG TAB PO SCH (09:09)
[2019-08-07] MEDS: ASPIRIN 81 MG PO SCH (09:09)
[2019-08-07] MEDS: METOPROLOL SUCCINATE (ER) 50 MG TAB.ER.24H PO SCH (09:09)
[2019-08-07] MEDS: LISINOPRIL 5 MG TAB PO SCH (09:09)
[2019-08-07] MEDS: FAMOTIDINE 20 MG TAB PO SCH (09:10)
[2019-08-07 09:12] VITALS: BP 150/95; PULSE 112; RESP 18; TEMP 97.6
[2019-08-07] MEDS: SODIUM CHLORIDE 0.9% 1,000 ML IV SCH (09:55)
--- NOTE | 2019-08-07 10:03 | P.DS ---
Providers Date of admission: 08/05/19 16:11 Attending physician: Toro Henry Consults: 08/05/19 16:11 Consult Physician Routine Consulting Provider: Antonella Lyons Consult Reason/Comments: COPD exacerbation, pneumonia Do you want consulting provider notified?: Yes Primary care physician: Physician Nonstaff Hospital Course: 49-year-old gentleman came in with complains of cough without any significant sputum production fever chills which has been going on for last 6 days. Patient is found to have significant pneumonia on the right side T multifocal significant in the right upper lobe. Repeat x-ray showed worsening of this pneumonia., Blood cultures were done sputum cultures were ordered. Patient additionally has elevated liver enzymes which is in minimal elevation twice in normal patient is on high-dose statin may be contributing to that since it's only minimal elevation of not stopping the statin, we'll repeat liver enzymes will also order ultrasound to rule out any cholelithiasis. Can be related to infection itself. Patient does have history of coronary disease stents in the past quit smoking 10 years ago patient is not in COPD exacerbation IV steroids will be discontinued. Patient blood sugars started going up because of her systemic steroids will obtain hemoglobin A1c. Patient is not a known diabetic 08/07/2019 Patient is afebrile wanted to go home patient will be discharged on 7 days of antibiotics for his pneumonia. Regarding his elevated liver enzymes liver enzymes has gone up even more than yesterday however does continue the statin ultrasound of the gallbladder did not show any gallstone disease or choledocholithiasis. Repeat comprehensive metabolic metabolic profile in 3 days, hepatitis panel is negative. Patient will be discharged today. PHYSICAL EXAMINATION: GENERAL: The patient is alert and oriented x3, not in any acute distress. Well developed, well nourished. HEENT: Pupils are round and equally reacting to light. EOMI. No scleral icterus. No conjunctival pallor. Normocephalic, atraumatic. No pharyngeal erythema. No thyromegaly. CARDIOVASCULAR: S1 and S2 present. No murmurs, rubs, or gallops. PULMONARY: Chest is clear to auscultation, no wheezing or crackles. ABDOMEN: Soft, nontender, nondistended, normoactive bowel sounds. No palpable organomegaly. MUSCULOSKELETAL: No joint swelling or deformity. EXTREMITIES: No cyanosis, clubbing, or pedal edema. NEUROLOGICAL: Gross neurological examination did not reveal any focal deficits. SKIN: No rashes. Assessment and Plan Plan: -Sepsis secondary to right upper lobe pneumonia. Patient will be be discharged on Ceftin for 7 more days -Elevated liver enzymes: Hepatitis panel and ultrasound of the right upper quadrant are negative and probably secondary to statin Expected to to improve with discontinuation of statin repeat compressive metabolic profile in 3 days -Coronary artery disease -Elevated blood sugars will obtain hemoglobin A1c secondary to systemic steroids which were discontinued patient is not in COPD exacerbation -Hypertension continue with lisinopril -Hyperlipidemia -Asymptomatic bacteriuria no evidence of a urinary tract infection Patient Condition at Discharge: Fair Plan - Discharge Summary New Discharge Prescriptions: New Metoprolol Succinate (ER) [Toprol Xl] 75 mg PO DAILY #60 tab Cefuroxime Axetil [Ceftin] 500 mg PO BID 7 Days #14 tab Discontinued Atorvastatin [Lipitor] 80 mg PO HS Metoprolol Succinate [Toprol Xl] 50 mg PO DAILY No Action Lisinopril [Zestril] 5 mg PO DAILY Aspirin [Adult Low Dose Aspirin EC] 81 mg PO DAILY Montelukast [Singulair] 10 mg PO DAILY Discharge Medication List Aspirin [Adult Low Dose Aspirin EC] 81 mg PO DAILY 05/30/18 [History] Lisinopril [Zestril] 5 mg PO DAILY 05/30/18 [History] Montelukast [Singulair] 10 mg PO DAILY 04/30/19 [History] Cefuroxime Axetil [Ceftin] 500 mg PO BID 7 Days #14 tab 08/07/19 [Rx] Metoprolol Succinate (ER) [Toprol Xl] 75 mg PO DAILY #60 tab 08/07/19 [Rx] Follow up Appointment(s)/Referral(s): Nonstaff,Physician [Primary Care Provider] - 3 Days Ambulatory/Diagnostic Orders: Comprehensive Metabolic Panel [LAB.AMB] Time Frame: 3 Days, Location: None Selected Patient Instructions/Handouts: Community Acquired Pneumonia (DC) Discharge Disposition: HOME SELF-CARE
== END 2019-08-07 11:31 | disposition home or self-care (01) | DRG 871 ==
LOC: EC 12:55 → 3SCARD 16:11
PROVIDERS: ADMIT Internal Medicine; ATTEND Internal Medicine
DX: A41.9 Sepsis, unspecified organism (principal); J18.1 Lobar pneumonia, unspecified organism; J80 Acute respiratory distress syndrome; J44.0 Chronic obstructive pulmonary disease with (acute) lower respiratory infection; R00.0 Tachycardia, unspecified; I25.10 Atherosclerotic heart disease of native coronary artery without angina pectoris; I10 Essential (primary) hypertension; R73.9 Hyperglycemia, unspecified; T45.8X5A Adverse effect of other primarily systemic and hematological agents, initial encounter; E78.5 Hyperlipidemia, unspecified; F17.200 Nicotine dependence, unspecified, uncomplicated; Z79.899 Other long term (current) drug therapy; Z79.82 Long term (current) use of aspirin; Z86.2 Personal history of diseases of the blood and blood-forming organs and certain disorders involving the immune mechanism; Z92.21 Personal history of antineoplastic chemotherapy; Z95.5 Presence of coronary angioplasty implant and graft; Z98.890 Other specified postprocedural states; Z82.49 Family history of ischemic heart disease and other diseases of the circulatory system
CPT/HCPCS: 36415; 71045; 71046; 76705; 80053; 80074; 81001; 82550; 83036; 83605; 83735; 83880; 84484; 85025; 85027; 85610; 85730; 87040; 87502; 94640; 94760; 96361; 96365; 96375; 99291

== ENCOUNTER 2023-12-17 18:03 | Emergency (ER) | payer OTHER ==
[2023-12-17 18:28] VITALS: RESP 16
--- NOTE | 2023-12-17 18:30 | ED ---
Chest Pain HPI - General Chief Complaint: Chest Pain Stated Complaint: Chest pain Time Seen by Provider: 12/17/23 18:29 Source: patient, RN notes reviewed, old records reviewed Mode of arrival: ambulatory Limitations: no limitations - History of Present Illness Initial Comments: This is a 53-year-old male to the ER for evaluation today. Patient presents today for evaluation regards to chest pain right-sided chest pain right-sided chest wall pain no travel history no sick contacts no shortness of breath no cough congestion travel history or sick contacts, patient has history of CAD but this is not feeling similar chest pain. Patient does have recent stress test within 2 years which was normal. No new trauma no new fevers no increased shortness of breath with exertion. MD Complaint: chest pain, other (Right-sided chest pain) Onset: during rest, during exertion Pain Location: right chest Pain Radiation: back Severity: moderate Severity scale (1-10): 4 Consistency: constant Improves With: nothing Worsens With: nothing Anginal Symptoms: nausea Other Symptoms: cough Treatments Prior to Arrival: none - Related Data Home Medications Medication Instructions Recorded Confirmed Aspirin [Adult Low Dose Aspirin EC] 81 mg PO DAILY 05/30/18 08/05/19 lisinopriL [Zestril] 5 mg PO DAILY 05/30/18 08/05/19 Montelukast [Singulair] 10 mg PO DAILY 04/30/19 08/05/19 Previous Rx's Medication Instructions Recorded Metoprolol Succinate (ER) [Toprol 75 mg PO DAILY #60 tab 08/07/19 Xl] cefUROXime axetiL [Ceftin] 500 mg PO BID 7 Days #14 tab 08/07/19 Allergies Allergy/AdvReac Type Severity Reaction Status Date / Time No Known Allergies Allergy Verified 08/05/19 13:30 Review of Systems ROS Statement: Those systems with pertinent positive or pertinent negative responses have been documented in the HPI. ROS Other: All systems not noted in ROS Statement are negative. EKG Findings - EKG Comments: EKG Findings:: EKG is sinus 71 ID 184 QRS 102 QTc 393 - EKG Results: EKG: interpreted by RAJWINDER Past Medical History Past Medical History: Coronary Artery Disease (CAD), Hyperlipidemia, Hypertension, Myocardial Infarction ([place]) Additional Past Medical History / Comment(s): MDS History of Any Multi-Drug Resistant Organisms: None Reported Past Surgical History: Back Surgery, Heart Catheterization With Stent Additional Past Surgical History / Comment(s): Pins rt ankle Past Anesthesia/Blood Transfusion Reactions: No Reported Reaction Date of Last Stent Placement:: 2013 Past Psychological History: No Psychological Hx Reported Past Alcohol Use History: Occasional Past Drug Use History: None Reported - Past Family History Father Family Medical History: Coronary Artery Disease (CAD) General Exam Limitations: no limitations General appearance: alert, in no apparent distress, anxious Head exam: Present: atraumatic, normocephalic, normal inspection Eye exam: Present: normal appearance, PERRL, EOMI. Absent: scleral icterus, con junctival injection, periorbital swelling ENT exam: Present: normal exam, mucous membranes moist Neck exam: Present: normal inspection. Absent: tenderness, meningismus, lymphadenopathy Respiratory exam: Present: normal lung sounds bilaterally. Absent: respiratory distress, wheezes, rales, rhonchi, stridor Cardiovascular Exam: Present: regular rate, normal rhythm, normal heart sounds. Absent: systolic murmur, diastolic murmur, rubs, gallop, clicks GI/Abdominal exam: Present: soft, normal bowel sounds. Absent: distended, tenderness, guarding, rebound, rigid Extremities exam: Present: normal inspection, full ROM, normal capillary refill. Absent: tenderness, pedal edema, joint swelling, calf tenderness Back exam: Present: normal inspection Neurological exam: Present: alert, oriented X3, CN II-XII intact Psychiatric exam: Present: normal affect, normal mood Skin exam: Present: warm, dry, intact, normal color. Absent: rash Course Vital Signs 12/17/23 12/17/23 12/17/23 18:15 19:30 20:17 Temperature 97 F L 98.2 F Pulse Rate 73 70 73 Respiratory 16 16 16 Rate Blood Pressure 165/102 134/85 141/89 O2 Sat by Pulse 98 96 98 Oximetry - Reevaluation(s) Reevaluation #1: Medical records reviewed Reevaluation #2: Patient denies chest pain Reevaluation #3: Patient informed of results questions answered Reevaluation #4: 12/17/23 20:05 Was pt. sent in by a medical professional or institution (, PA, PERFECT BIND MACHINE OPERATOR, urgent care, hospital, or shelter...) When possible be specific @ -no Did you speak to anyone other than the patient for history (EMS, parent, family, police, friend...)? What history was obtained from this source @ -no Did you review nursing and triage notes (agree or disagree)? Why? @ -agree Are old charts reviewed (outside hosp., previous admission, EMS record, old EKG, old radiological studies, urgent care reports/EKG's, shelter records)? Report findings @ -yes Differential Diagnosis (chest pain, altered mental status, abdominal pain women, abdominal pain men, vaginal bleeding, weakness, fever, dyspnea, syncope, headache, dizziness, GI bleed, back pain, seizure, CVA, palpatations, mental health, musculoskeletal)? @ -prior EKG interpreted by me (3pts min.). @ -yes X-rays interpreted by me (1pt min.). @ -yes negative for acute disease CT interpreted by me (1pt min.). @ -no U/S interpreted by me (1pt. min.). @ -no What testing was considered but not performed or refused? (CT, X-rays, U/S, labs)? Why? @ -none What meds were considered but not given or refused? Why? @ -none Did you discuss the management of the patient with other professionals (professionals i.e. , PA, PERFECT BIND MACHINE OPERATOR, lab, RT, psych nurse, social science analyst, family lawyer, teacher, chief risk officer, rn case manager)? Give summary @ -no Was smoking cessation discussed for >3mins.? @ -no Was critical care preformed (if so, how long)? @ -no Were there social determinants of health that impacted care today? How? (Homelessness, low income, unemployed, alcoholism, drug addiction, transportation, low edu. Level, literacy, decrease access to med. care, [facility], rehab)? @ -none Was there de-escalation of care discussed even if they declined (Discuss DNR or withdrawal of care, Hospice)? DNR status @ -no What co-morbidities impacted this encounter? (DM, HTN, Smoking, COPD, CAD, Cancer, CVA, ARF, Chemo, Hep., AIDS, mental health diagnosis, sleep apnea, morbid obesity)? @ -none Was patient admitted / discharged? Hospital course, mention meds given and route, prescriptions, significant lab abnormalities, going to OR and other pertinent info. @ - 53 male to ER for evaluation with cardiac risk factors coming in for chest pain and will be ad discharged home with refuses further evaluation and treatment Discharge Undiagnosed new problem with uncertain prognosis? @ -no Drug Therapy requiring intensive monitoring for toxicity (Heparin, Nitro, Insulin, Cardizem)? @ -no Were any procedures done? @ -no Diagnosis/symptom? @ -Chest pain Acute, or Chronic, or Acute on Chronic? @ -Acute Uncomplicated (without systemic symptoms) or Complicated (systemic symptoms)? @ -Complicated Side effects of treatment? @ -no Exacerbation, Progression, or Severe Exacerbation? @ -exacerbation Poses a threat to life or bodily function? How? (Chest pain, [place], [place], pneumonia, PE, COPD, DKA, ARF, appy, cholecystitis, CVA, Diverticulitis, Homicidal, Suicidal, threat to staff... and all critical care pts) @ -yes with chest pain Reevaluation #5: Differential Chest Pain: Stable Angina, Unstable Angina, STEMI, NSTEMI Aortic Dissection, Pneumothorax, Musculoskeletal, Esophageal Spasm GERD, Cholecystitis, Pancreatitis, Zoster, this is not meant to be an all-inclusive list. Chest Pain MDM - MDM 53 male to ER for evaluation with cardiac risk factors coming in for chest pain and will be ad discharged home with refuses further evaluation and treatment Disposition Clinical Impression: Chest pain, Tachycardia, HTN (hypertension), CAD (coronary artery disease), Obesity Disposition: HOME SELF-CARE Condition: Fair Instructions (If sedation given, give patient instructions): Chest Pain (ED) Is patient prescribed a controlled substance at d/c from ED?: No Referrals: None,Stated [REFERRING] - 1-2 days Time of Disposition: 20:00
[2023-12-17 18:39] LABS: Basophils % (A) 0 %; Eosinophils # (A) 0.1 k/uL (0-0.7); Eosinophils % (A) 1 %; HGB 16.5 gm/dL (13.0-17.5); Lymphocytes # (A) 1.5 k/uL (1.0-4.8); Lymphocytes % (A) 29 %; MCH 34.6 pg (25.0-35.0); MCHC 32.9 g/dL (31.0-37.0); MCV 105.1 fL (80.0-100.0); Macrocytosis Slight; Mean Platelet Volume 7.4; Monocytes # (A) 0.6 k/uL (0-1.0); Monocytes % (A) 11 %; Neutrophils # (A) 2.8 k/uL (1.3-7.7); Neutrophils % (A) 55 %; Platelet Count 214 k/uL (150-450); RBC 4.76 m/uL (4.30-5.90); RDW 13.1 % (11.5-15.5); WBC 5.1 k/uL (3.8-10.6)
[2023-12-17 18:46] LABS: ALT 42 U/L (4-49); AST 47 U/L (17-59); African American GFR (CKD) 78 (>60 ml/min/1.73 sqM); Albumin 4.2 g/dL (3.5-5.0); Alkaline Phosphatase 95 U/L (38-126); Anion Gap 7 mmol/L; Blood Urea Nitrogen 18 mg/dL (9-20); Calcium 9.4 mg/dL (8.4-10.2); Carbon Dioxide 25 mmol/L (22-30); Chloride 109 mmol/L (98-107); Glucose 96 mg/dL (74-99); Non-African American GFR(CKD) 68 (>60 ml/min/1.73 sqM); Potassium 4.3 mmol/L (3.5-5.1); Sodium 141 mmol/L (137-145); Total Bilirubin 0.7 mg/dL (0.2-1.3); Total Protein 7.2 g/dL (6.3-8.2)
[2023-12-17 18:48] LABS: Partial Thromboplastin Time 28.6 sec (22.0-30.0); Prothrombin Time 10.8 sec (10.0-12.5)
--- NOTE | 2023-12-17 19:45 | XR ---
EXAMINATION TYPE: XR chest 2V DATE OF EXAM: 12/17/2023 7:19 PM CLINICAL INDICATION:Male, 53 years old with history of Chest Pain; COMPARISON: Chest radiographs from 08/07/2019. TECHNIQUE: XR chest 2V Frontal and lateral views of the chest. FINDINGS: Lungs/Pleura: There is no evidence of pleural effusion, focal consolidation, or pneumothorax. Pulmonary vascularity: Unremarkable. Heart/mediastinum: Cardiomediastinal silhouette is unremarkable. Musculoskeletal: No acute osseous pathology. IMPRESSION: 1. No acute cardiopulmonary disease process. 2. COPD changes.
[2023-12-17 20:37] VITALS: BP 141/89; PULSE 73; TEMP 98.2
== END 2023-12-17 20:19 | disposition home or self-care (01) ==
LOC: EC 18:03
DX: I25.10 Atherosclerotic heart disease of native coronary artery without angina pectoris (principal); E78.5 Hyperlipidemia, unspecified; I10 Essential (primary) hypertension; I25.2 Old myocardial infarction; E66.9 Obesity, unspecified; Z68.38 Body mass index [BMI] 38.0-38.9, adult; Z79.82 Long term (current) use of aspirin; Z79.899 Other long term (current) drug therapy
CPT/HCPCS: 36415; 71046; 80053; 83735; 84484; 85025; 85610; 85730; 93005; 99285